=== PATIENT | female | born 1975 | race Caucasian/White ===

== ENCOUNTER 2024-11-06 12:24 | Outpatient (CLI) | payer BC | END 2024-11-06 12:25 | disposition home or self-care (01) | LOC: MRI 12:24 | PROVIDERS: ATTEND Family Medicine Sports Medicine | DX: M47.26 Other spondylosis with radiculopathy, lumbar region (principal); R93.7 Abnormal findings on diagnostic imaging of other parts of musculoskeletal system; Z98.1 Arthrodesis status | CPT/HCPCS: 72148 ==